=== PATIENT | male | born 1950 | race Caucasian/White ===

== ENCOUNTER → 2024-03-17 | Outpatient (CLI) | payer MEDICARE, BC ==
--- NOTE | 2024-03-18 23:20 | PE ---
EXAMINATION TYPE: PET CT fusion skull to thigh DATE OF EXAM: 03/17/2024 COMPARISON: No pertinent CT at this location Prior PET/CT: No prior PET/CT at this location CLINICAL INDICATION: Male, 73 years old with history of R91.1 SPN, TECHNIQUE: Following the intravenous administration of 10.68 mCi of F-18 FDG, whole body images are performed from the skull base to the midthigh. Images are reviewed on the computer in the coronal, a xial, and sagittal planes. Reconstructed rotating images are created on independent workstation and reviewed on the computer. A localization and attenuation correction CT is performed in conjunction with the PET scan. DLP: 299.77 mGycm SCAN: Initial Blood glucose: 88 mg/dL Average Mediastinum SUV: 2.32 Average Liver SUV: 2.39 FINDINGS: NECK: No abnormal uptake THORAX: There is uptake within a right apical anterolateral mass within SUV of 8.3, image 88. No suspicious mediastinal or hilar adenopathy. ABDOMEN: Some very subtle uptake may be within the left adrenal gland. Image 154, SUV 4.48. PELVIS: No abnormal uptake OSSEOUS STRUCTURES: No abnormal uptake LOCALIZATION CT: Nodule correlates with the radiotracer uptake. Very prominent prostate COMPARISON: None at this location IMPRESSION: 1. 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 2. Subtle uptake may be within the left adrenal gland. 3. No additional suspicious areas of abnormal uptake. [facility], , 03/18/2024 11:17 PM
== END | disposition home or self-care (01) ==
LOC: RADPETMAIN 14:15
PROVIDERS: ATTEND Internal Medicine Critical Care Medicine
DX: R91.1 Solitary pulmonary nodule (principal)
CPT/HCPCS: 78815; A9552